=== PATIENT | male | born 2000 | race Caucasian/White ===

== ENCOUNTER 2021-11-24 16:24 | Outpatient (CLI) | payer SELFPAY | END 2021-11-24 16:25 | disposition home or self-care (01) | LOC: AMB 11-30 13:39 | PROVIDERS: Visit Provider Emergency Medicine Emergency Medical Services | DX: G40.409 Other generalized epilepsy and epileptic syndromes, not intractable, without status epilepticus (principal) | CPT/HCPCS: A0425; A0427 ==